=== PATIENT | female | born 1975 | race Caucasian/White ===

== ENCOUNTER 2021-03-21 11:10 | Emergency (ER) | payer BC ==
[2021-03-21 13:27] LABS: Absolute Lymphocytes (CBC) 1.7 K/uL (0.7-4.9); Basophils % 0.8 % (0-1.3); Hematocrit 41.3 % (36.0-45.0); MPV 6.5 fL (7.6-11.3)
[2021-03-21 13:48] LABS: BUN Blood Urea Nitrogen 4 mg/dL (7-18); Bicarbonate 27 mmol/L (21-32); Glucose Level 151 mg/dL (74-106); Potassium 4.5 mmol/L (3.5-5.1); Sodium Level 134 mmol/L (136-145); Troponin (Emerg Dept Use Only) < 0.02 ng/mL (0.0-0.045)
--- NOTE | 2021-03-21 14:21 | EDPHYS ---
Physician Documentation [facility] Name: Crystal García Age: 46 yrs Sex: Female : 1975 Arrival Date: 03/21/2021 Time: 11:11 Bed 10 Private MD: ED Physician Reji Kelly HPI: 03/21 18:13 This 46 yrs old Female presents to ER via Ambulatory with complaints of High kb Blood Pressure, Headache, Doesn't Feel Right. 18:13 The patient has elevated blood pressure and discovered this at home, with a home kb device. Onset: The symptoms/episode began/occurred 2 day(s) ago. Associated signs and symptoms: Pertinent positives: headache, mailase. Severity of symptoms: At its worst the blood pressure was 177 mm Hg. The patient has not experienced similar symptoms in the past. The patient has not recently seen a physician. Patient reports her blood pressure has been elevated for 2 days with generalized malaise and headache. States she was recently switched from Xanax 3 times daily to Klonopin and symptoms started shortly after.. 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 Historical: - Allergies: 11:22 PENICILLINS (Hives); tw2 11:22 Clindamycin (Hives); tw2 - Home Meds: 11:22 metformin 500 mg Oral tab 1 tab 2 times per day [Active]; metoprolol tartrate 25 mg tw2 Oral tab 1 tab 2 times per day [Active]; Lexapro 20 mg Oral tab 1 tab once daily [Active]; Lipitor 40 mg Oral tab 1 tab once daily [Active]; aspirin 81 mg Oral chew 1 tab once daily [Active]; Seroquel 25 mg Oral tab 1 tab once a day [Active]; clonazepam 0.5 mg Oral tab 1 tab 2 times per day [Active]; alprazolam 0.5 mg Oral TbDi 1 tab 3 times per day [Active]; 11:26 clopidogrel 75 mg oral tab 1 tab once daily [Active]; tw2 - PMHx: 11:22 Hypertensive disorder; Hypercholesterolemia; tw2 11:26 Heart attack; tw2 - PSHx: 11:26 Cholecystectomy; Cardiac stent; tw2 - Immunization history:: Client reports receiving the 2nd dose of the Covid vaccine. - Social history:: Smoking status: Patient reports the use of cigarette tobacco products, smokes one pack cigarettes per day. Patient uses caffeine, "few cups coffee in am and few cups in afternoon". ROS: 18:13 Cardiovascular: Negative for chest pain, palpitations, and edema. kb 18:13 Constitutional: Positive for malaise. 18:13 All other systems are negative. 18:13 Neuro: Positive for headache. kb Exam: 12:49 ECG was reviewed by the Attending Physician. kb 18:13 Constitutional: This is a well developed, well nourished patient who is awake, alert, kb and in no acute distress. Head/Face: Normocephalic, atraumatic. ENT: Moist Mucous membranes Cardiovascular: Regular rate and rhythm with a normal S1 and S2. No gallops, murmurs, or rubs. No pulse deficits. Respiratory: Respirations even and unlabored. No increased work of breathing, no retractions or nasal flaring. Skin: Warm, dry with normal turgor. Normal color. MS/ Extremity: Pulses equal, no cyanosis. Neurovascular intact. Full, normal range of motion. Neuro: Awake and alert, GCS 15, oriented to person, place, time, and situation. Moves all extremities. Normal gait. Psych: Awake, alert, with orientation to person, place and time. Behavior, mood, and affect are within normal limits. Vital Signs: 11:25 BP 155 / 101; Pulse 87; Resp 19; Temp 97.7(TE); Pulse Ox 100% on R/A; tw2 11:30 BP 152 / 89; tw2 13:28 BP 117 / 79; Pulse 82; Resp 20; Pulse Ox 100% on R/A; ld1 MDM: 12:00 Patient medically screened. kb 18:12 Data reviewed: vital signs, nurses notes. Data interpreted: Pulse oximetry: on room air kb is 100 %. Interpretation: normal. Counseling: I had a detailed discussion with the patient and/or guardian regarding: the historical points, exam findings, and any diagnostic results supporting the discharge/admit diagnosis, lab results, the need for outpatient follow up, a family practitioner, to return to the emergency department if symptoms worsen or persist or if there are any questions or concerns that arise at home. 03/21 12:48 Order name: CBC with Diff kb 03/21 12:48 Order name: Basic Metabolic Panel; Complete Time: 13:56 kb 03/21 12:48 Order name: Troponin (emerg Dept Use Only); Complete Time: 13:56 kb 03/21 12:49 Order name: CBC with Automated Diff; Complete Time: 13:30 EDMS 03/21 14:15 Order name: SARS-COV-2 RT PCR; Complete Time: 14:20 EDMS 03/21 12:00 Order name: EKG; Complete Time: 12:01 kb 03/21 12:00 Order name: EKG - Nurse/Tech; Complete Time: 12:39 kb 03/21 12:48 Order name: IV Start; Complete Time: 13:26 kb EC:49 Rate is 90 beats/min. Rhythm is regular. QRS [place] is Normal. DC interval is normal at kb 130 msec. QRS interval is normal at 72 msec. QT interval is normal at 348 msec. Administered Medications: No medications were administered Disposition: 03/22 04:46 Co-signature as Attending Physician, Reji Kelly MD I agree with the assessment and kdr plan of care. Disposition Summary: 03/21/21 14:20 Discharge Ordered Location: Home kb Condition: Stable kb Diagnosis - Essential (primary) hypertension kb Followup: kb - With: Emergency Department - When: As needed - Reason: Worsening of condition Followup: kb - With: Private Physician - When: 2 - 3 days - Reason: Recheck today's complaints, Continuance of care, Re-evaluation by your physician Discharge Instructions: - Discharge Summary Sheet kb - Hypertension, Adult, [id number] kb - Managing Your Hypertension kb Forms: - Medication Reconciliation Form kb - Thank You Letter kb - Antibiotic Education kb - Prescription Opioid Use kb Signatures: Dispatcher [employer] EDIzabela Madrid, NAIL MILL WORKER-C NAIL MILL WORKER-Reji Jackson MD MD kdr Sofya Edwards RN RN tw2 Corrections: (The following items were deleted from the chart) 03/21 13:19 12:49 CORONAVIRUS+ ordered. EDND EDND
--- NOTE | 2021-03-21 14:21 | ER ---
Nurse's Notes [facility] Name: Crystal García Age: 46 yrs Sex: Female : 1975 Arrival Date: 03/21/2021 Time: 11:11 Bed 10 Private MD: Diagnosis: Essential (primary) hypertension Presentation: 03/21 11:21 Chief complaint: Patient states: my blood pressure has been running high. it was tw2 187/111 when i took it. they suggested i go to the ER. it has been running really high the past 2 days. and when it gets high the base of back of my head hurts on the right side. 11:29 Coronavirus screen: At this time, the client does not indicate any symptoms associated tw2 with coronavirus-19. Ebola Screen: Patient denies travel to an Ebola-affected area in the 21 days before illness onset. Initial Sepsis Screen: Does the patient meet any 2 criteria? No. Patient's initial sepsis screen is negative. Does the patient have a suspected source of infection? No. Patient's initial sepsis screen is negative. Risk Assessment: Do you want to hurt yourself or someone else? Patient reports no desire to harm self or others. Onset of symptoms was March 21, 2021. 11:29 Method Of Arrival: Ambulatory tw2 11:29 Acuity: KARLO 3 tw2 Triage Assessment: 11:28 Headache History: The patient has had previous headaches and this one is different than tw2 previous episodes, and this one is more severe than previous episodes. General: Appears in no apparent distress. Behavior is anxious, crying. Pain: Pain currently is 7 out of 10 on a pain scale. Pain began 2-3 days ago. Also complains of no other associated symptoms. Neuro: Reports headache. 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 Historical: - Allergies: 11:22 PENICILLINS (Hives); tw2 11:22 Clindamycin (Hives); tw2 - Home Meds: 11:22 metformin 500 mg Oral tab 1 tab 2 times per day [Active]; metoprolol tartrate 25 mg tw2 Oral tab 1 tab 2 times per day [Active]; Lexapro 20 mg Oral tab 1 tab once daily [Active]; Lipitor 40 mg Oral tab 1 tab once daily [Active]; aspirin 81 mg Oral chew 1 tab once daily [Active]; Seroquel 25 mg Oral tab 1 tab once a day [Active]; clonazepam 0.5 mg Oral tab 1 tab 2 times per day [Active]; alprazolam 0.5 mg Oral TbDi 1 tab 3 times per day [Active]; 11:26 clopidogrel 75 mg oral tab 1 tab once daily [Active]; tw2 - PMHx: 11:22 Hypertensive disorder; Hypercholesterolemia; tw2 11:26 Heart attack; tw2 - PSHx: 11:26 Cholecystectomy; Cardiac stent; tw2 - Immunization history:: Client reports receiving the 2nd dose of the Covid vaccine. - Social history:: Smoking status: Patient reports the use of cigarette tobacco products, smokes one pack cigarettes per day. Patient uses caffeine, "few cups coffee in am and few cups in afternoon". Screenin:28 Abuse screen: Denies threats or abuse. Denies injuries from another. Nutritional ld1 screening: No deficits noted. Tuberculosis screening: No symptoms or risk factors identified. Fall Risk None identified. Assessment: 12:10 General: Appears in no apparent distress. comfortable, Behavior is calm, cooperative, ld1 appropriate for age. 12:10 Pain: Denies pain. Neuro: Level of Consciousness is awake, alert, obeys commands, ld1 Oriented to person, place, time, situation, Appropriate for age. Cardiovascular: Capillary refill < 3 seconds Patient's skin is warm and dry. Rhythm is regular. Respiratory: Airway is patent Respiratory effort is even, unlabored, Respiratory pattern is regular, symmetrical. GI: Abdomen is flat, non-distended. : No signs and/or symptoms were reported regarding the genitourinary system. EENT: No signs and/or symptoms were reported regarding the EENT system. Derm: No signs and/or symptoms reported regarding the dermatologic system. Musculoskeletal: No signs and/or symptoms reported regarding the musculoskeletal system. Vital Signs: 11:25 BP 155 / 101; Pulse 87; Resp 19; Temp 97.7(TE); Pulse Ox 100% on R/A; tw2 11:30 BP 152 / 89; tw2 13:28 BP 117 / 79; Pulse 82; Resp 20; Pulse Ox 100% on R/A; ld1 ED Course: 11:11 Patient arrived in ED. as 11:28 Arm band placed on. tw2 11:30 Triage completed. tw2 11:38 EKG completed in triage. Results shown to MD. tw2 12:00 Izabela Garcia FNP-C [facility] kb 12:00 Reji Kelly MD is Attending Physician. kb 12:00 Patient's name was called from ER lobby. No response. aa5 13:26 CBC with Automated Diff Sent. ld1 13:26 Troponin (emerg Dept Use Only) Sent. ld1 13:26 Basic Metabolic Panel Sent. ld1 13:26 CBC with Diff Sent. ld1 13:28 Patient has correct armband on for positive identification. Bed in low position. Call ld1 light in reach. Side rails up X2. Pulse ox on. NIBP on. Door closed. Noise minimized. Warm blanket given. 13:28 No provider procedures requiring assistance completed. Inserted saline lock: 20 gauge ld1 in right antecubital area, using aseptic technique. Blood collected. 14:28 IV discontinued, intact, bleeding controlled, No redness/swelling at site. ld1 Administered Medications: No medications were administered Outcome: 14:20 Discharge ordered by MD. kb 14:27 Discharged to home ambulatory. ld1 14:27 Condition: stable 14:27 Discharge instructions given to patient, Instructed on discharge instructions, follow up and referral plans. Demonstrated understanding of instructions, follow-up care. 14:28 Patient left the ED. ld1 Signatures: Izabela Garcia FNP-C FNP-Ckb Martinez, Amelia as Calderon, Audri RN RN aa5 Sofya Edwards RN RN tw2 Jodi Franklin RN RN ld1
[2021-03-21 14:35] VITALS: TEMP 97.7; O2SAT 100
[2021-03-21 14:37] VITALS: BP 117/79
== END 2021-03-21 14:28 | disposition home or self-care (01) ==
LOC: ER 11:10
DX: I10 Essential (primary) hypertension (principal); E78.00 Pure hypercholesterolemia, unspecified; F17.210 Nicotine dependence, cigarettes, uncomplicated; Z20.822 Contact with and (suspected) exposure to COVID-19; Z79.82 Long term (current) use of aspirin; Z88.0 Allergy status to penicillin; Z88.3 Allergy status to other anti-infective agents; Z95.818 Presence of other cardiac implants and grafts
CPT/HCPCS: 93005; 85025; 80048; 36415; 84484; 99283; U0003

== ENCOUNTER 2022-06-08 10:01 | Emergency (ER) | payer BC ==
--- OUTSIDE RECORDS SUMMARY | 2022-06-08 10:05 | XMS REPORT | Continuity of Care Document ---
:1975 Author Organization Formerly [facility] t Address [address] [place] [address] Care Team Providers Name Role Phone BEV GIRALDO Attending Clinician Unavailable Bernard RAMAN Attending Clinician Unavailable DOMINIC SAHU Attending Clinician Unavailable IQRA العلي Admitting Clinician Unavailable Problems This patient has no known problems. Allergies, Adverse Reactions, Alerts This patient has no known allergies or adverse reactions. Social History Smoking Status Start Date Stop Date Source Heavy tobacco smoker [facility] (LUF/YOUNG/SA) Medications Ordered Filled Start Stop Current Ordering Indication Dosage Frequency Signature Comments Components Source Medication Medication Date Date Medication? Clinician (SIG) Name Name ASPIRIN ASPIRIN Yes [facility] TABLET TABLET 3-[facility] CHEWABLE CHEWABLE 00:00: [facility] 00 l (LUF/LI V/SA) atorvastati atorvastati Yes 80MG Q2W [facility] n 40 MG n 40 MG 3-19 [facility] Oral Tablet Oral Tablet 00:00: Memoria 00 l (LUF/LI V/SA) Metoprolol Metoprolol Yes 25MG Q6D [facility] Tartrate 25 Tartrate 25 3-19 L ukes MG Oral MG Oral 00:00: Memoria Tablet Tablet 00 l (LUF/LI V/SA) Ticagrelor Ticagrelor 2017-0 Yes 90MG Q6D [facility] 90 MG Oral 90 MG Oral 3-19 Maru es Tablet Tablet 00:00: Memoria [Brilinta] [Brilinta] 00 l (LUF/LI V/SA) Escitalopra Escitalopra Yes 20mg QD [facility] m 20 MG m 20 MG [facility] Oral Tablet Oral Tablet M emoria l (LUF/LI V/SA) Metformin Metformin Yes 1000mg BID [facility] Oral Oral [facility] (LUF/LI V/SA) Immunizations Ordered Immunization Filled Immunization Date Status Commen ts Source Name Name Seasonal, trivalent, Seasonal, trivalent, 2016-09-[address] [facility] recombinant, recombinant, 00:00:00 [facility] injectable influenza injectable influenza (LUF/YOUNG/SA) vaccine, vaccine, preservative free preservative free Procedures This patient has no known procedures. Encounters Start End Encounter Admission Attending Care Care Encounter Source Date/Time Date/Time Type Type Clinicians Facility Department ID 2022-05-06 2022-05-06 Emergency ER [facility] [id number] [address] [place] 11:22:00 14:36:00 [id number] [facility] 2022-05-06 2022-05-06 emergency [id number] 11:22:00 14:36:00 [id number] 2018-05-14 2018-05-14 Inpatient Bernard RAMAN [facility] [place] [id number] [facility] 08:08:00 23:59:00 [facility] [address]LUF[address], V/SA) [place] [id number] Results Test Description Test Time Test Comments Results Result Comments Source CBC WITH MANUAL DIFF 2016-09-30 07:26:00 Test Item Value Reference Range Interpretation Comme nts WBC (test code = WBC) 10.5 k/ul 4.8-10.8 RBC (test code = RBC) 4.29 Millions/ul 4.20-5.40 Hemoglobin (test code = HGB) 13.6 gm/dl 12.0-14.0 Hematocrit (test code = HCT) 38.7 % 37.0-47.0 MCV (test code = MCV) 90.3 fL 81.0-99.0 MCH (test code = MCH) 31.7 pg 27.0-31.0 H MCHC (test code = MCHC) 35.1 gm/dl 33.0-37.0 RDW (test code = RDWVC) 12.5 % 11.5-14.5 Platelet (test code = PLT) 348 10\S\3/ul 130-400 MPV (test code = MPV) 6.9 fL 7.4-10.4 L Neutrophils (test code = NEUTR) 65 % 42-75 Bands (test code = BANDM) 1 % 0-2 Lymphocytes (test code = LYMPH) 28 % 13-42 Monocytes (test code = MONOS) 4 % 4-14 Eosinophils (test code = EOS) 2 % 1-3 RBC Morphology (test code = RBCMOR) Normochromic CBC MANUAL [facility]En[facility] DothanJpyvos-[id number] 05:54:00 Test Item Value Reference Range Interpretation Comments Magnesium (test code = MG) 1.9 mg/dl 1.6-2.3 [facility]-[id number] 05:54:00 Test Item Value Reference Range Interpretation Comments Glucose (test code 156 mg/dl 75-110 H = GLU) BUN (test code = 9.0 mg/dl 6.0-17.0 BUN) Creatinine (test 0.6 mg/dl 0.4-1.2 code = CREA) Sodium (test code = 140 mmol/l 137-145 NA) Potassium (test 4.2 mmol/l 3.5-5.0 code = K) Chloride (test code 110 mmol/l 98-107 H = CL) CO2 (test code = 22 mmol/l 22-30 CO2) Calcium (test code 8.7 mg/dl 8.4-10.2 = CALC) T Protein (test 6.9 gm/dl 5.1-8.7 code = TP) Albumin (test code 3.6 gm/dl 3.5-4.6 = ALB) A/G Ratio (test 1.1 % 1.1-2.2 code = AGRAT) AST (SGOT) (test 32 U/L 11-36 code = AST) ALT (SGPT) (test 29 U/L 11-40 code = ALT) Alkaline Phos (test 71 U/L 47-114 code = ALKP) Total Bilirubin 0.8 mg/dl 0.2-1.2 (test code = TBIL) Globulin (test code 3.3 gm/dl 2.3-3.5 = GLOBU) Calcium, Corrected 9.0 mg/dl 8.4-10.2 Various f ormulas exist (test code = for corrected s mariluz CALCCORR) calcium results , each yielding differ ent values. This co rrected result was base d on the formula: Co rrected Calcium = Serum Calcium + [0.8 * ( 4 - SerumAlbumin)] EGFR if >60 Ghanaian (test code mL/min/1.73m\ = EGFRAA) S\2 EGFR if Non- >60 Estimate d Glomerular Ghanaian (test code mL/min/1.73m\ Filtrat ion Rate (eGFR) = EGFRNA) S\2 Reference Inter vals Decision Points for 18 years and older and average body ma ss: >= 60 Does not exc lude kidney disease. 30 - 59 Suggests mod erate chronic kidney disease and indicates t he need for further investigation including asses sment of proteinuria and cardiovascular factors. < 30 U sually indicates a nee d for referral for assessment and management of c hronic kidney failure. [facility]-[id number] 14:09:00 Test Item Value Reference Range Interpretation Comments Glucose (test code 170 mg/dl 75-110 H = GLU) BUN (test code = 9.0 mg/dl 6.0-17.0 BUN) Creatinine (test 0.7 mg/dl 0.4-1.2 code = CREA) Sodium (test code = 140 mmol/l 137-145 NA) Potassium (test 4.3 mmol/l 3.5-5.0 code = K) Chloride (test code 106 mmol/l 98-107 = CL) CO2 (test code = 24 mmol/l 22-30 CO2) Calcium (test code 8.7 mg/dl 8.4-10.2 = CALC) EGFR if >60 Ghanaian (test code mL/min/1.73m\ = EGFRAA) S\2 EGFR if Non- >60 Estimate d Glomerular Ghanaian (test code mL/min/1.73m\ Filtrat ion Rate (eGFR) = EGFRNA) S\2 Reference Inter vals Decision Points for 18 years and older and average body ma ss: >= 60 Does not exc lude kidney disease. 30 - 59 Suggests mod erate chronic kidney disease and indicates t he need for further investigation including asses sment of proteinuria and cardiovascular factors. < 30 U sually indicates a nee d for referral for assessment and management of c hronic kidney failure. [facility] WITH MANUAL [id number] 08:08:00 Test Item Value Reference Range Interpretation Comments WBC (test code = WBC) 10.6 k/ul 4.8-10.8 RBC (test code = RBC) 4.23 Millions/ul 4.20-5.40 Hemoglobin (test code = HGB) 13.0 gm/dl 12.0-14.0 Hematocrit (test code = HCT) 38.3 % 37.0-47.0 MCV (test code = MCV) 90.5 fL 81.0-99.0 MCH (test code = MCH) 30.8 pg 27.0-31.0 MCHC (test code = MCHC) 34.0 gm/dl 33.0-37.0 RDW (test code = RDWVC) 13.6 % 11.5-14.5 Platelet (test code = PLT) 325 10\S\3/ul 130-400 MPV (test code = MPV) 6.9 fL 7.4-10.4 L Neutrophils (test code = 65 % 42-75 NEUTR) Bands (test code = BANDM) 2 % 0-2 Lymphocytes (test code = 28 % 13-42 LYMPH) Monocytes (test code = 2 % 4-14 L MONOS) Eosinophils (test code = 3 % 1-3 EOS) CBC MANUAL DiffAsc[facility]kinCORONARY [id number] 06:17:00 Test Item Value Reference Range Interpretation Comments Triglycerides (test 176 mg/dl 0-149 H Trig. In terpretation code = TRIG) Guide: Normal: < 150 mg/dl Borderlin e High: 150 - 199 mg/dl High: 200 - 499 mg/dl Very High: >= 500 mg /dl Cholesterol (test code 172 mg/dl 0-198 = CHOL) HDL (test code = HDL) 27 mg/dl 35-86 L dLDL (test code = 110 mg/dl 0-99 H Direct LDL DILDL) Intrepretations : Optimal: <100 m g/dl Suspect: 100 - 129 mg/dl Borderlin e: 130 - 159 mg/dl Hig h: 160 - 189 mg/dl Ana Lilia y High: >190 mg/dl Risk Factor (test code 6.4 0.0-4.4 H Risk Factor Men Women = RFACT) Risk Factor 3.4 3.3 1/2 Average 5.0 4.4 Average 9.6 7.1 2X Average 24.0 11 .0 3X Average vLDL (test code = 35 mg/dl 20-40 VLDL) [facility]-[id number] 06:17:00 Test Item Value Reference Range Interpretation Comments Glucose (test code 151 mg/dl 75-110 H = GLU) BUN (test code = 8.0 mg/dl 6.0-17.0 BUN) Creatinine (test 0.6 mg/dl 0.4-1.2 code = CREA) Sodium (test code = 140 mmol/l 137-145 NA) Potassium (test 3.8 mmol/l 3.5-5.0 code = K) Chloride (test code 109 mmol/l 98-107 H = CL) CO2 (test code = 23 mmol/l 22-30 CO2) Calcium (test code 8.2 mg/dl 8.4-10.2 L = CALC) T Protein (test 6.7 gm/dl 5.1-8.7 code = TP) Albumin (test code 3.5 gm/dl 3.5-4.6 = ALB) A/G Ratio (test 1.1 % 1.1-2.2 code = AGRAT) AST (SGOT) (test 49 U/L 11-36 H code = AST) ALT (SGPT) (test 31 U/L 11-40 code = ALT) Alkaline Phos (test 65 U/L 47-114 code = ALKP) Total Bilirubin 0.6 mg/dl 0.2-1.2 (test code = TBIL) Globulin (test code 3.2 gm/dl 2.3-3.5 = GLOBU) Calcium, Corrected 8.6 mg/dl 8.4-10.2 Various f ormulas exist (test code = for corrected s mariluz CALCCORR) calcium results , each yielding differ ent values. This co rrected result was base d on the formula: Co rrected Calcium = Serum Calcium + [0.8 * ( 4 - SerumAlbumin)] EGFR if >60 Ghanaian (test code mL/min/1.73m\ = EGFRAA) S\2 EGFR if Non- >60 Estimate d Glomerular Ghanaian (test code mL/min/1.73m\ Filtrat ion Rate (eGFR) = EGFRNA) S\2 Reference Inter vals Decision Points for 18 years and older and average body ma ss: >= 60 Does not ex clude kidney disease. 30 - 59 Suggests mod erate chronic kidney disease and indicates t he need for further investigation including asses sment of proteinuria and cardiovascular factors. < 30 U sually indicates a nee d for referral for assessment and management of c hronic kidney failure. [facility] CampusDijjua-[id number] 06:04:00 Test Item Value Reference Range Interpretation Comments Magnesium (test code = MG) 2.1 mg/dl 1.6-2.3 [facility]-fkinGLYCOSALATED [id number] 05:58:00 Test Item Value Reference Range Interpretation Comments Hemoglobin A1C (test 8.7 % 4.3-6.0 H code = GLYCO) Mean Plasma Glucose 232 mg/dl 90-180 WHEN SD T RESULTS FOR (test code = MPG) A1C EXCEED 14.0, THE LINEAR LIMIT OF THE INSTRUMENT, THE CALCULATED RESU LT FOR THE MEAN GLUCOS E IS NOT RELIABLE. [facility]-[id number] 13:13:00 Test Item Value Reference Range Interpretation Comments CPK (test code = CPK) 772 U/L 30-135 H [facility] CampusZsjeeh-[id number] 13:13:00 Test Item Value Reference Range Interpretation Comments CKMB (test code = CKMB) 71.20 ng/ml 0.00-2.37 HH Critical values were called to Adolfo in ICU by [id number] on 09/28/2016 13:13 PM. Results were read lyle Mata in ICU. Was left on hold for 12 minutes before a nurse came to the phone.[facility]-LufkinTROPONIN-I Quantitative 2016-09-28 13:13:00 Test Item Value Reference Range Interpretation Comments Troponin-I (test 17.100 ng/ml 0.000-0.034 HH The 99th Pe rcentile URL code = TROP) is 0.034 ng/mL. The Joint Societ y of Cardiology/[employer]mer ican College of Card iology (ESC/ACC) and [facility] Auramist of Clinical Bioche anu Standards of La boratory Practices (NACB ) recommends that the diagnosis of AM I includes the presence of clinical history suggest josé antonio of Acute Coronary Syndrome (ACS) and a max imum concentration o f cardiac troponin exceed ing the 99th percentile of a normal referenc e population [upp er reference limit (URL)] on at least one oc casion during the firs t 24 hours after the clini attila event. Critical values were called to Adolfo in ICU by [id number] on 09/28/2016 13:13 PM. Results were read lyle Mata in ICU. Was left on hold for 12 minutes before a nurse came to the phone.[facility]-[id number] 12:59:00 Test Item Value Reference Range Interpretation Comments CPK (test code = CPK) 781 U/L 30-135 H [facility]-DoyleMYOGLOBIN, [id number] 12:56:00 Test Item Value Reference Range Interpretation Comments Myoglobin (test code = PARDEEP) 61.5 ng/ml 0.0-61.5 [facility]-LufkinTROPONIN-I [id number] 06:00:00 Test Item Value Reference Range Interpretation Comments Troponin-I (test 26.400 ng/ml 0.000-0.034 HH The 99th Pe rcentile URL code = TROP) is 0.034 ng/mL. The Joint Societ y of Cardiology/Amer ican College of Card iology (ESC/ACC) and [facility] of Clinical Bioche aun Standards of La boratory Practices (NACB ) recommends that the diagnosis of AM I includes the presence of clinical history suggest josé antonio of Acute Coronary Syndrome (ACS) and a max imum concentration o f cardiac troponin exceed ing the 99th percentile of a normal referenc e population [upp er reference limit (URL)] on at least one oc casion during the firs t 24 hours after the clini attila event. Critical values were called to ROSE. ICU by [id number] on 09/28/2016 06:00 AM. Results were read back by ROSE. ICU .[facility]-[id number] 06:00:00 Test Item Value Reference Range Interpretation Comments CPK (test code = CPK) 1159 U/L 30-135 H [facility] CampusZdrjmk-[id number] 06:00:00 Test Item Value Reference Range Interpretation Comments CKMB (test code = CKMB) 85.80 ng/ml 0.00-2.37 HH Critical values were called to ROSE. ICU by [id number] on 09/28/2016 06:00 AM. Results were read back by ROSE. ICU .[facility]-[id number] 05:57:00 Test Item Value Reference Range Interpretation Comments Glucose (test code 240 mg/dl 75-110 H = GLU) BUN (test code = 11.0 mg/dl 6.0-17.0 BUN) Creatinine (test 0.6 mg/dl 0.4-1.2 code = CREA) Sodium (test code = 136 mmol/l 137-145 L NA) Potassium (test 4.4 mmol/l 3.5-5.0 code = K) Chloride (test code 107 mmol/l 98-107 = CL) CO2 (test code = 21 mmol/l 22-30 L CO2) Calcium (test code 8.5 mg/dl 8.4-10.2 = CALC) EGFR if >60 Ghanaian (test code mL/min/1.73m\ = EGFRAA) S\2 EGFR if Non- >60 Estimate d Glomerular Ghanaian (test code mL/min/1.73m\ Filtrat ion Rate (eGFR) = EGFRNA) S\2 Reference Inter vals Decision Points for 18 years and older and average body ma ss: >= 60 Does not exc lude kidney disease. 30 - 59 Suggests mod erate chronic kidney disease and indicates t he need for further investigation including asses sment of proteinuria and cardiovascular factors. < 30 U sually indicates a nee d for referral for assessment and management of c hronic kidney failure. [facility]inCB WITH AUTO [id number] 05:39:00 Test Item Value Reference Range Interpretation Comments WBC (test code = WBC) 13.1 k/ul 4.8-10.8 H RBC (test code = RBC) 4.31 Millions/ul 4.20-5.40 Hemoglobin (test code = HGB) 13.5 gm/dl 12.0-14.0 Hematocrit (test code = HCT) 39.1 % 37.0-47.0 MCV (test code = MCV) 90.6 fL 81.0-99.0 MCH (test code = MCH) 31.3 pg 27.0-31.0 H MCHC (test code = MCHC) 34.5 gm/dl 33.0-37.0 RDW (test code = RDWVC) 13.5 % 11.5-14.5 Platelet (test code = PLT) 348 10\S\3/ul 130-400 MPV (test code = MPV) 6.8 fL 7.4-10.4 L NE% (test code = NE) 79.1 % 42.0-75.0 H LY% (test code = LY) 15.1 % 13.0-42.0 MO% (test code = MO) 4.5 % 4.0-14.0 EO% (test code = EO) 1.1 % 1.0-3.0 BA% (test code = BA) 0.2 % 1.0-3.0 L NRBC, Auto (test code = 0 NRBC_AUTO) [facility]-[id number] 00:21:00 Test Item Value Reference Range Interpretation Comments Glucose (test code 305 mg/dl 75-110 H = GLU) BUN (test code = 11.0 mg/dl 6.0-17.0 BUN) Creatinine (test 0.7 mg/dl 0.4-1.2 code = CREA) Sodium (test code = 138 mmol/l 137-145 NA) Potassium (test 3.9 mmol/l 3.5-5.0 code = K) Chloride (test code 103 mmol/l 98-107 = CL) CO2 (test code = 25 mmol/l 22-30 CO2) Calcium (test code 8.8 mg/dl 8.4-10.2 = CALC) T Protein (test 6.7 gm/dl 5.1-8.7 code = TP) Albumin (test code 3.6 gm/dl 3.5-4.6 = ALB) A/G Ratio (test 1.2 % 1.1-2.2 code = AGRAT) AST (SGOT) (test 14 U/L 11-36 code = AST) ALT (SGPT) (test 17 U/L 11-40 code = ALT) Alkaline Phos (test 68 U/L 47-114 code = ALKP) Total Bilirubin 0.4 mg/dl 0.2-1.2 (test code = TBIL) Globulin (test code 3.1 gm/dl 2.3-3.5 = GLOBU) Calcium, Corrected 9.1 mg/dl 8.4-10.2 Various f ormulas exist (test code = for corrected s mariluz CALCCORR) calcium results , each yielding differ ent values. This co rrected result was base d on the formula: Co rrected Calcium = Serum Calcium + [0.8 * ( 4 - SerumAlbumin)] EGFR if >60 Ghanaian (test code mL/min/1.73m\ = EGFRAA) S\2 EGFR if Non- >60 Estimate d Glomerular Ghanaian (test code mL/min/1.73m\ Filtrat ion Rate (eGFR) = EGFRNA) S\2 Reference Inter vals Decision Points for 18 years and older and average body ma ss: >= 60 Does not exc lude kidney disease. 30 - 59 Suggests mod erate chronic kidney disease and indicates t he need for further investigation including asses sment of proteinuria and cardiovascular factors. < 30 U sually indicates a nee d for referral for assessment and management of c hronic kidney failure. ER [address] [place] [address]-[id number] 00:17:00 Test Item Value Reference Range Interpretation Comments CPK (test code = CPK) 30 U/L 30-[address] [place] [address]-LufkinPT AND [id number] 00:15:00 Test Item Value Reference Range Interpretation Comments Protime (test code 10.1 seconds 9.0-11.9 = PT) INR (test code = 1.0 0.9-1.1 INR results are INR) intended ONLY t o monitor Oral Anticoagulant t herapy in stablized pa tients. The INR Therape utic Range is 2.0 - 3.0 Patients with a mechanical hear t, the INR Range is 2. 5 - 3.[address] [place] [address]-[id number] 00:15:00 Test Item Value Reference Range Interpretation Comments aPTT (test code = PTT) 24.5 seconds 23.0-33.[address] [place] [address] [id number] 00:04:00 Test Item Value Reference Range Interpretation Comments B-PEPTIDE (BIOSITE) (test code = 10.0 pg/ml 0.0-100.0 BIOBNP) SERIAL INSTRUMENT NUMBER (test 20712 code = SERIAL) [facility] RAPID [id number] 00:04:00 Test Item Value Reference Range Interpretation Comments CKMB (BIOSITE) (test code = <1.0 ng/ml 0.0-2.5 N BIOCKMB) TROPONIN-I (BIOSITE) (test code <0.050 ng/ml 0.000-0.050 N = BIOTROP) MYOGLOBIN (BIOSITE) (test code = 30.9 ng/ml 0.0-170.0 BIOMYO) SERIAL INSTRUMENT NUMBER (test 59459 code = SERIAL) [facility] WITH AUTO [id number] 00:03:00 Test Item Value Reference Range Interpretation Comments WBC (test code = WBC) 12.8 k/ul 4.8-10.8 H RBC (test code = RBC) 4.35 Millions/ul 4.20-5.40 Hemoglobin (test code = HGB) 13.6 gm/dl 12.0-14.0 Hematocrit (test code = HCT) 39.7 % 37.0-47.0 MCV (test code = MCV) 91.2 fL 81.0-99.0 MCH (test code = MCH) 31.1 pg 27.0-31.0 H MCHC (test code = MCHC) 34.1 gm/dl 33.0-37.0 RDW (test code = RDWVC) 13.2 % 11.5-14.5 Platelet (test code = PLT) 347 10\S\3/ul 130-400 MPV (test code = MPV) 7.0 fL 7.4-10.4 L NE% (test code = NE) 72.2 % 42.0-75.0 LY% (test code = LY) 18.8 % 13.0-42.0 MO% (test code = MO) 6.2 % 4.0-14.0 EO% (test code = EO) 1.9 % 1.0-3.0 BA% (test code = BA) 0.9 % 1.0-3.0 L NRBC, Auto (test code = 0 NRBC_AUTO) [address]
[2022-06-08] MEDS ORDERED: DIPHENHYDRAMINE 25 MG TAB/CAP ONE (10:35)
[2022-06-08] MEDS ORDERED: QUETIAPINE 25 MG TAB PO ONE (11:00)
--- NOTE | 2022-06-08 11:19 | ER ---
Nurse's Notes [facility] Name: Crystal García Age: 47 yrs Sex: Female : 1975 Arrival Date: 06/08/2022 Time: 10:04 Bed DIS3 Private MD: Diagnosis: itching;Anxiety disorder, unspecified Presentation: 06/08 10:10 Chief complaint: Patient states: Pt reports severe itching feeling x several days after kb3 her PCP changed her home medications. Pt reports she was instructed to stop taking the medications last night after speaking with her PCP. No redness or rash note. Pt noted to be crying and very anxious. Coronavirus screen: Vaccine status: Patient reports receiving the 2nd dose of the covid vaccine. Client denies travel out of the [place] in the last 14 days. Ebola Screen: Patient negative for fever greater than or equal to 101.5 degrees Fahrenheit, and additional compatible Ebola Virus Disease symptoms Patient denies exposure to infectious person. Patient denies travel to an Ebola-affected area in the 21 days before illness onset. Initial Sepsis Screen: Does the patient meet any 2 criteria? No. Patient's initial sepsis screen is negative. Does the patient have a suspected source of infection? No. Patient's initial sepsis screen is negative. Risk Assessment: Do you want to hurt yourself or someone else? Patient reports no desire to harm self or others. Onset of symptoms was June 05, 2022. 10:10 Method Of Arrival: Ambulatory kb3 10:10 Acuity: KARLO 3 kb3 Triage Assessment: 10:14 General: Appears in no apparent distress. Behavior is anxious, crying. Pain: Denies kb3 pain. 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 kb3 Historical: - Allergies: 10:14 Clindamycin (Hives); kb3 10:14 PENICILLINS (Hives); kb3 - Home Meds: 10:14 aspirin 81 mg Oral chew 1 tab once daily [Active]; clonazepam 0.5 mg Oral tab 1 tab 2 kb3 times per day [Active]; clopidogrel 75 mg Oral tab 1 tab once daily [Active]; Lexapro 20 mg Oral tab 1 tab once daily [Active]; Lipitor 40 mg Oral tab 1 tab once daily [Active]; metformin 500 mg Oral tab 1 tab 2 times per day [Active]; metoprolol tartrate 25 mg Oral tab 1 tab 2 times per day [Active]; Farxiga 10 mg oral tab 1 tab once daily [Active]; - PMHx: 10:14 heart attack; Hypercholesterolemia; Hypertensive disorder; Bipolar disorder; kb3 - PSHx: 10:14 cardiac stent; Cholecystectomy; kb3 - Immunization history:: Adult Immunizations up to date, Client reports receiving the 2nd dose of the Covid vaccine, Last tetanus immunization: up to date. - Social history:: Smoking status: Patient reports the use of cigarette tobacco products, smokes one pack cigarettes per day. Screenin:30 Abuse screen: Denies threats or abuse. Denies injuries from another. Nutritional kb3 screening: No deficits noted. Tuberculosis screening: No symptoms or risk factors identified. Fall Risk None identified. Assessment: 10:30 General: Appears in no apparent distress. Behavior is calm, cooperative, See triage kb3 note. 10:35 General: Pt moved to diagnostic chair for evaluation and medication. kb3 11:15 Reassessment: Dr. Posey at chairside discussing POC. jl7 11:20 Reassessment: Patient appears in no apparent distress at this time. Patient states jl7 feeling better. Patient states symptoms have improved. Vital Signs: 10:10 BP 133 / 87; Pulse 85; Resp 20; Temp 98; Pulse Ox 98% ; Weight 73.94 kg; Height 5 ft. 9 kb3 in. (175.26 cm); Pain 0/10; 10:10 Body Mass Index 24.07 (73.94 kg, 175.26 cm) kb3 ED Course: 10:04 Patient arrived in ED. jl7 10:14 Triage completed. kb3 10:14 Arm band placed on right wrist. kb3 10:18 Marvin Posey DO is Attending Physician. ms3 10:30 Patient has correct armband on for positive identification. kb3 10:30 No provider procedures requiring assistance completed. Patient did not have IV access kb3 during this emergency room visit. 10:33 Kiara Chang, DIANN is Primary Nurse. jl7 11:16 Adolfo Garcia MD is Referral Physician. ms3 Administered Medications: 11:03 Drug: Benadryl (diphenhydrAMINE) 25 mg Route: PO; kb3 11:29 Follow up: Response: No adverse reaction; Marked relief of symptoms jl7 11:20 Not Given (Patient Refused): SEROquel (QUEtiapine) 25 mg PO once kb3 Medication: 10:30 VIS not applicable for this client. kb3 Outcome: 11:18 Discharge ordered by . ms3 11:28 Discharged to home ambulatory. jl7 11:28 Condition: stable 11:28 Discharge instructions given to patient, Instructed on discharge instructions, follow up and referral plans. Demonstrated understanding of instructions, follow-up care. 11:29 Patient left the ED. jl7 Signatures: Kiara Chang RN RN jl7 Marvin Posey DO DO ms3 Yessi Paredes, RN RN kb3 Corrections: (The following items were deleted from the chart) 10:16 10:14 Home Meds: alprazolam 0.5 mg Oral TbDi 1 tab 3 times per day; "i have been taking kb3 it for 5 years"; kb3 10:16 10:14 Home Meds: Seroquel 25 mg Oral tab 1 tab once a day; kb3 kb3
--- NOTE | 2022-06-08 11:19 | EDPHYS ---
Physician Documentation [facility] Name: Crystal García Age: 47 yrs Sex: Female : 1975 Arrival Date: 06/08/2022 Time: 10:04 Bed DIS3 Private MD: ED Physician Marvin Posey HPI: 06/08 10:29 This 47 yrs old Female presents to ER via Ambulatory with complaints of Medication ms3 Interaction. 10:29 The patient presents to the emergency department with anxiety. Onset: The ms3 symptoms/episode began/occurred 2 day(s) ago. Past psychiatric history: Prior diagnosis: bipolar disorder, Psychiatric medications include: Was on Seroquel and recently changed to Buspar and Trazadone, Primary psychiatric physician:. Associated signs and symptoms: Pertinent positives; anxiety, Pertinent negatives: hallucinations, homicidal ideation, paranoia, suicide ideation, vomiting. Severity of symptoms: At their worst the symptoms were severe in the emergency department the symptoms are unchanged. 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/13/2022 kb3 Historical: - Allergies: 10:14 Clindamycin (Hives); kb3 10:14 PENICILLINS (Hives); kb3 - Home Meds: 10:14 aspirin 81 mg Oral chew 1 tab once daily [Active]; clonazepam 0.5 mg Oral tab 1 tab 2 kb3 times per day [Active]; clopidogrel 75 mg Oral tab 1 tab once daily [Active]; Lexapro 20 mg Oral tab 1 tab once daily [Active]; Lipitor 40 mg Oral tab 1 tab once daily [Active]; metformin 500 mg Oral tab 1 tab 2 times per day [Active]; metoprolol tartrate 25 mg Oral tab 1 tab 2 times per day [Active]; Farxiga 10 mg oral tab 1 tab once daily [Active]; - PMHx: 10:14 heart attack; Hypercholesterolemia; Hypertensive disorder; Bipolar disorder; kb3 - PSHx: 10:14 cardiac stent; Cholecystectomy; kb3 - Immunization history:: Adult Immunizations up to date, Client reports receiving the 2nd dose of the Covid vaccine, Last tetanus immunization: up to date. - Social history:: Smoking status: Patient reports the use of cigarette tobacco products, smokes one pack cigarettes per day. ROS: 10:29 Constitutional: Negative for fever, and chills. Eyes: Negative for injury, pain, ms3 redness, and discharge, Neck: Negative for injury, pain, and swelling, Cardiovascular: Negative for chest pain, and palpitations. Respiratory: Negative for shortness of breath, cough, wheezing, and pleuritic chest pain, Abdomen/GI: Negative for abdominal pain, nausea, vomiting, diarrhea, and constipation, MS/Extremity: Negative for injury and deformity. 10:29 Skin: Positive for itching. 10:29 Psych: Positive for anxiety. 10:29 All other systems are negative. Exam: 10:29 Constitutional: This is a well developed, well nourished patient who is awake, alert, ms3 and in no acute distress. Head/Face: Normocephalic, atraumatic. Eyes: Pupils equal round and reactive to light, extra-ocular motions intact. Lids and lashes normal. Conjunctiva and sclera are non-icteric and not injected. Periorbital areas with no swelling, redness, or edema. Chest/axilla: Normal chest wall appearance and motion. Nontender with no deformity. Cardiovascular: Regular rate and rhythm with a normal S1 and S2. No gallops, murmurs, or rubs. Normal PMI, no JVD. No pulse deficits. Respiratory: Lungs have equal breath sounds bilaterally, clear to auscultation and percussion. No rales, rhonchi or wheezes noted. No increased work of breathing, no retractions or nasal flaring. Abdomen/GI: Soft, non-tender, with normal bowel sounds. No distension or tympany. No guarding or rebound. No evidence of tenderness throughout. Skin: Warm, dry with normal turgor. Normal color with no rashes, no lesions, and no evidence of cellulitis. MS/ Extremity: Pulses equal, no cyanosis. Neurovascular intact. Full, normal range of motion. Neuro: Awake and alert, GCS 15, oriented to person, place, time, and situation. Cranial nerves II-XII grossly intact. Motor strength 5/5 in all extremities. Sensory grossly intact. Cerebellar exam normal. Normal gait. 10:29 Psych: Behavior/mood is anxious, Affect is calm, Oriented to person, place, time, Patient has no thoughts/intents to harm self or others. Judgement / Insight is normal. Memory is normal. Delusions/hallucinations are not present. Vital Signs: 10:10 BP 133 / 87; Pulse 85; Resp 20; Temp 98; Pulse Ox 98% ; Weight 73.94 kg; Height 5 ft. 9 kb3 in. (175.26 cm); Pain 0/10; 10:10 Body Mass Index 24.07 (73.94 kg, 175.26 cm) kb3 MDM: 10:28 Patient medically screened. ms3 11:18 Data reviewed: vital signs, nurses notes, and as a result, I will discharge patient. ms3 Counseling: I had a detailed discussion with the patient and/or guardian regarding: the historical points, exam findings, and any diagnostic results supporting the discharge/admit diagnosis, the need for outpatient follow up, to return to the emergency department if symptoms worsen or persist or if there are any questions or concerns that arise at home, smoking cessation. ED course: Patient improved after Benadryl. Patient states she has a Seroquel prescription at [facility] and she prefers to fill her prescription and take the Seroquel at home. Discussed with patient need to follow-up with her primary care physician in 2 to 3 days for reassessment. Patient understands and agrees with plan. All questions were answered. Return precautions discussed include worsening symptoms, or any other concerns. On reevaluation patient is improved, in no apparent distress, nontoxic, speaking full sentences. Administered Medications: 11:03 Drug: Benadryl (diphenhydrAMINE) 25 mg Route: PO; kb3 11:29 Follow up: Response: No adverse reaction; Marked relief of symptoms jl7 11:20 Not Given (Patient Refused): SEROquel (QUEtiapine) 25 mg PO once kb3 Disposition Summary: 06/08/22 11:18 Discharge Ordered Location: Home ms3 Condition: Stable ms3 Diagnosis - itching ms3 - Anxiety disorder, unspecified ms3 Followup: ms3 - With: Adolfo Garcia MD - When: 2 - 3 days - Reason: Recheck today's complaints Discharge Instructions: - Discharge Summary Sheet ms3 - Pruritus ms3 - Managing Anxiety, Adult ms3 Forms: - Medication Reconciliation Form ms3 - Thank You Letter ms3 - Antibiotic Education ms3 - Prescription Opioid Use ms3 Signatures: Marvin Posey DO DO ms3 Yessi Paredes RN RN kb3 Kiara Chang RN jl7 Corrections: (The following items were deleted from the chart) 10:16 10:14 Home Meds: alprazolam 0.5 mg Oral TbDi 1 tab 3 times per day; "i have been taking kb3 it for 5 years"; kb3 10:16 10:14 Home Meds: Seroquel 25 mg Oral tab 1 tab once a day; kb3 kb3
[2022-06-08 11:34] VITALS: BP 133/87; TEMP 98; O2SAT 98
== END 2022-06-08 11:29 | disposition home or self-care (01) ==
LOC: ER 10:01
DX: L29.9 Pruritus, unspecified (principal); F41.9 Anxiety disorder, unspecified; I10 Essential (primary) hypertension; F17.210 Nicotine dependence, cigarettes, uncomplicated; Z95.818 Presence of other cardiac implants and grafts; Z88.0 Allergy status to penicillin; Z88.3 Allergy status to other anti-infective agents
CPT/HCPCS: 99283